=== PATIENT | female | born 2000 | race Caucasian/White ===

== ENCOUNTER → 2024-07-02 | Outpatient (REF) | LOC: M EMP 13:52 | PROVIDERS: ATTEND Family Medicine | DX: Z11.52 Encounter for screening for COVID-19 (principal) ==

== ENCOUNTER 2025-06-23 11:06 | Emergency (ER) | payer OTHER ==
[~2025-06-23] VITALS: Ht 175.3 cm; Wt 91.9 kg
[2025-06-23 11:45] LABS: BASO # 0.1 10^3/uL (0.0-0.2); BASO % 1.4 % (0.0-1.0); EOS # 0.3 10^3/uL (0.0-0.5); EOS % 4.6 % (0.0-3.0); LYMPH # 2.6 10^3/uL (1.5-5.0); LYMPH % 35.7 % (24.0-44.0); MONO # 0.5 10^3/uL (0.0-0.8); MONO % 6.7 % (2.0-8.0); NEUTROPHILS # 3.7 10^3/uL (1.5-8.5); NEUTROPHILS % 51.5 % (36.0-66.0); PLATELET COUNT, AUTOMATED 368 10^3/uL (150-450)
[2025-06-23 12:14] LABS: ALT/SGPT 16 U/L (7.0-40); AST/SGOT 12 U/L (<34); CALCIUM LEVEL 8.9 MG/DL (8.5-10.1); CARBON DIOXIDE LEVEL 25 MMOL/L (20-31); CHLORIDE LEVEL 105 MMOL/L (98-107); CREATININE FOR GFR 1.01 MG/DL (0.55-1.30); GLOMERULAR FILTRATION RATE 79.2 (>60); POTASSIUM SERUM 4.1 MMOL/L (3.5-5.1); SODIUM LEVEL 140 MMOL/L (136-145)
[2025-06-23 12:23] LABS: HEPATITIS B SURFACE ANTIBODY POSITIVE (POSITIVE)
[2025-06-23 12:33] LABS: HCG, SERUM QUALITATIVE NEGATIVE (NEGATIVE)
[2025-06-23 12:49] LABS: HIV SCREEN CENTAUR EXPOSED NEGATIVE (NEGATIVE)
[2025-06-23 12:56] LABS: HEPATITIS C VIRUS ABY INDEX 0.03 INDEX (<0.8)
[2025-06-23 13:15] VITALS: BP 131/77; TEMP 98.5; O2SAT 100
[2025-06-23] MEDS: TETANUS/DIPHTH/ACEL. PERTUSSIS 0.5 ML SYR IM.IMMUN ONE (13:16)
== END 2025-06-23 13:26 | disposition home or self-care (01) ==
LOC: M ED 11:06
DX: S61.237A Puncture wound without foreign body of left little finger without damage to nail, initial encounter (principal); Z77.21 Contact with and (suspected) exposure to potentially hazardous body fluids; Y92.239 Unspecified place in hospital as the place of occurrence of the external cause; Y93.89 Activity, other specified; Y99.0 Civilian activity done for income or pay; Z23 Encounter for immunization